=== PATIENT | male | born 1990 | race Caucasian/White ===

== ENCOUNTER 2024-07-12 13:50 | Outpatient (CLI) | payer BC, SELFPAY | END 2024-07-12 13:51 | disposition home or self-care (01) | PROVIDERS: PCP Emergency Medicine; Visit Provider Family Medicine | DX: Z00.00 Encounter for general adult medical examination without abnormal findings (principal); Z13.1 Encounter for screening for diabetes mellitus; Z13.6 Encounter for screening for cardiovascular disorders | CPT/HCPCS: 80048; 80061 ==